=== PATIENT | male | born 1975 | race Caucasian/White ===

== ENCOUNTER 2018-07-10 16:47 | Emergency (ER) | payer OTHER ==
[~2018-07-10] VITALS: Ht 182.9 cm; Wt 124.3 kg
[2018-07-10] MEDS ORDERED: VASOTEC20 M1 PO (16:53)
[2018-07-10] MEDS ORDERED: TOPROL XL100 M1 PO (16:53)
== END 2018-07-10 17:44 | disposition home or self-care (01) ==
LOC: ER 16:47
DX: M54.5 Low back pain (principal)

== ENCOUNTER → 2022-05-02 | Emergency (ER) | payer OTHER ==
[~2022-05-02] VITALS: Ht 182.9 cm; Wt 122.5 kg
[~2022-05-02] MED LIST: METFORMIN HCL500 MG; TOPROL XL100 M1 PO; VASOTEC20 M1 PO
== END | disposition home or self-care (01) ==
LOC: ER 12:26
DX: T50.905A Adverse effect of unspecified drugs, medicaments and biological substances, initial encounter (principal); Y92.9 Unspecified place or not applicable; Z88.6 Allergy status to analgesic agent; I10 Essential (primary) hypertension

== ENCOUNTER 2022-11-11 12:48 | Emergency (ER) | payer OTHER ==
[~2022-11-11] VITALS: Ht 182.9 cm; Wt 115.7 kg
== END 2022-11-11 15:58 | disposition home or self-care (01) ==
LOC: ER 12:48
PROVIDERS: General Practice
DX: R53.81 Other malaise (principal); R50.9 Fever, unspecified; Z20.822 Contact with and (suspected) exposure to COVID-19; Z88.6 Allergy status to analgesic agent